=== PATIENT | male | born 1985 | race Caucasian/White ===

== ENCOUNTER 2018-04-06 01:58 | Emergency (ER) | payer OTHER ==
[~2018-04-06] VITALS: Ht 175.3 cm; Wt 106.1 kg
[2018-04-06 02:09] VITALS: BP 133/87; Ht 175.3 cm; Wt 106.1 kg
== END 2018-04-06 02:40 | disposition home or self-care (01) ==
LOC: ED 01:58
DX: L73.9 Follicular disorder, unspecified (principal); I10 Essential (primary) hypertension